=== PATIENT | male | born 1955 | race Caucasian/White ===

== ENCOUNTER 2017-01-11 06:17 | Day surgery (SDC) | payer BC ==
--- NOTE | 2017-01-10 11:56 | NUR ---
IV START PATIENT REPORTS THAT HE HAS A VAGAL RESPONSE EVERY TIME HE GETS A IV STARTED, SO LAST TIME THEY GAVE HIM A VALIUM BEFORE THE IV START.
[~2017-01-11] VITALS: Ht 177.8 cm; Wt 95.9 kg
[~2017-01-11 06:17] MED LIST: AMLO10TA2 PO; ASPI-715 PO; HYDR25TA PO; MULT-806 PO
--- OUTSIDE RECORDS SUMMARY | 2017-01-11 06:21 | XMS REPORT | Referral Summary ---
Author Author [facility] Organization [facility] Address Unknown Phone Unavailable Care Team Providers Care Wool Hat Hydraulicker Name Role Phone Aliza Gerardo Primary Care Physician [phone] Encounter Date(s): 03/04/15 - 03/04/15 [facility] [address] [place] [address] Discharge Disposition: 01-Home or Self Care Attending Physician: Adama eGrardo MD Admitting Physician: Adama Gerardo MD Vital Signs Most recent to 1 oldest [Reference Range]: Temperature Tympanic 36.3 degC [36.6-38.1 degC] *LOW* (03/04/15 1:01 PM) Peripheral Pulse 76 bpm Rate [60-100 bpm] (03/04/15 1:01 PM) Blood Pressure 130/84 mmHg [90-140/60-90 mmHg] (03/04/15 1:01 PM) Problem List Condition Effective Dates Status Health Status Informant Benign essential Active hypertension (disorder)(Confirmed ) Malignant tumor of 2013 Active prostate (disorder)(Confirmed )1 Tobacco Active patient user(Confirmed) Umbilical Active hernia(Confirmed) 1Prostate removed in [place]. Allergies, Adverse Reactions, Alerts No Known Allergies Medications aspirin 81 mg, 0 Refill(s) Start Date: 04/12/14 Status: Ordered hydrochlorothiazide 25 mg oral tablet See Instructions, TAKE ONE TABLET BY MOUTH EVERY DAY, # 90 tabs, 1 Refill(s), eRx: [facility] #[id number], TAKE ONE TABLET BY MOUTH EVERY DAY Start Date: 03/07/15 Status: Ordered multivitamin Daily, 0 Refill(s) Start Date: 04/12/14 Status: Ordered Norvasc 10 mg oral tablet See Instructions, TAKE ONE TABLET BY MOUTH EVERY DAY, # 30 tabs, 2 Refill(s), eRx: [facility] #[id number], TAKE ONE TABLET BY MOUTH EVERY DAY Start Date: 06/14/15 Status: Ordered Norvasc 10 mg oral tablet See Instructions, TAKE ONE TABLET BY MOUTH EVERY DAY, # 30 tabs, 2 Refill(s), eRx: [facility] #[id number], TAKE ONE TABLET BY MOUTH EVERY DAY Start Date: 03/10/15 Status: Ordered predniSONE 10 mg oral tablet See Instructions, 4 tabs dly 3 days, 3 tabs dly 3 days, 2 tabs dly 3 days , 2 tabs dly 3 days, one tab dly 3 days then stop. with food, # 30 tabs, 0 Refill(s) Start Date: 03/17/15 Status: Ordered Results No data available for this section Immunizations Vaccine Date Refusal Reason tetanus/diphth/pertuss (Tdap) adult/adol 11/21/12 Procedures Procedure Date Related Diagnosis Body Site Cystoscopy 2012 Social History Social History Type Response Smoking Status Former smoker; Type: Cigarettes; Tobacco use per day: More than 1 pack; Number of years: 28 Assessment and Plan Extracted from: Title: Office Visit Note Author: Adama Gerardo MD Date: 03/04/15 Assessment/Plan Benign essential hypertension (disorder) Ordered: Basic Metabolic Panel Lipid Panel Malignant tumor of prostate (disorder) Plan: Continue all current medications. Follow up in 6 months. Lets check your cholesterol next week.
--- OUTSIDE RECORDS SUMMARY | 2017-01-11 06:21 | XMS REPORT | Referral Summary ---
Author Author [facility] Organization [facility] Address Unknown Phone Unavailable Care Team Providers Care Carpenter Assistant Installer Name Role Phone Geneva Lara Primary Care Physician [phone] Encounter Date(s): 10/31/16 - 10/31/16 [facility] [address] [place], [place] [address] Discharge Diagnosis: PC (prostate cancer) Discharge Diagnosis: PC (prostate cancer) Discharge Disposition: 01-Home or Self Care Attending Physician: Joshua Marrero MD Admitting Physician: Joshua Marrero MD Vital Signs Most recent to 1 oldest [Reference Range]: Blood Pressure 160/100 mmHg [90-140/60-90 mmHg] *HI* (10/31/16 3:39 PM) Problem List Condition Effective Dates Status Health Status Informant Benign essential Active hypertension (disorder)(Confirmed ) Malignant tumor of 2013 Active prostate (disorder)(Confirmed )1 Obesity(Confirmed) Active patient Tobacco Active patient user(Confirmed) Umbilical Active hernia(Confirmed) 1Prostate removed in [place]. Allergies, Adverse Reactions, Alerts No Known Allergies Medications aspirin 81 mg, 0 Refill(s) Start Date: 04/12/14 Status: Ordered multivitamin Daily, 0 Refill(s) Start Date: 04/12/14 Status: Ordered Results No data available for this section Immunizations Given and Recorded Vaccine Date Status Refusal Reason tetanus/diphth/pertuss (Tdap) adult/adol 11/21/12 Recorded influenza virus vaccine, inactivated 08/05/15 Recorded Procedures Procedure Date Related Diagnosis Body Site Cystoscopy 2012 Social History Social History Type Response Smoking Status Former smoker; Type: Cigarettes; Tobacco use per day: More than 1 pack; Number of years: 28 Assessment and Plan Extracted from: Title: Office Visit Note Author: Joshua Marrero MD Date: 10/31/16 Assessment/Plan 1.PC (prostate cancer) Ordered: Prostate Specific Antigen
--- OUTSIDE RECORDS SUMMARY | 2017-01-11 06:21 | XMS REPORT | Referral Summary ---
Author Author [facility] Organization [facility] Address Unknown Phone Unavailable Care Team Providers Care Night Coordinator Name Role Phone Aliza Gerardo Primary Care Physician [phone] Encounter Date(s): 03/04/15 - 03/04/15 [facility] [address] [place] [address] Discharge Disposition: 01-Home or Self Care Attending Physician: Adama Gerardo MD Admitting Physician: Adama Gerardo MD Vital [...] user(Confirmed) Umbilical Active hernia(Confirmed) 1Prostate removed in [place]. Allergies, Adverse Reactions, Alerts No Known Allergies Medications aspirin 81 mg, 0 Refill(s) Start Date: 04/12/14 Status: Ordered hydrochlorothiazide 25 mg oral tablet See Instructions, TAKE ONE TABLET BY MOUTH EVERY DAY, # 90 tabs, 1 Refill(s), eRx: [facility] #[id number], TAKE ONE TABLET BY MOUTH EVERY DAY Start Date: 03/07/15 Status: Ordered multivitamin Daily, 0 Refill(s) Start Date: 04/12/14 Status: Ordered Norvasc 10 mg oral tablet See Instructions, TAKE ONE TABLET BY MOUTH EVERY DAY, # 30 tabs, 2 Refill(s), eRx: [facility] #[id number], TAKE ONE TABLET BY MOUTH EVERY DAY Start Date: 06/14/15 Status: Ordered Norvasc 10 mg oral tablet See Instructions, TAKE ONE TABLET BY MOUTH EVERY DAY, # 30 tabs, 2 Refill(s), eRx: [facility] #[id number], TAKE ONE TABLET BY MOUTH EVERY DAY [...]
--- OUTSIDE RECORDS SUMMARY | 2017-01-11 06:21 | XMS REPORT | Referral Summary ---
Author Author [facility] Organization [facility] Address Unknown Phone Unavailable Care Team Providers Care Grader Meat Name Role Phone Geneva Lara Primary Care Physician [phone] Encounter VC Date(s): 10/31/15 - 10/31/15 [facility] [address] [place], [place] [address] Discharge Disposition: 01-Home or Self Care Attending Physician: Joshua Marrero MD Admitting Physician: Joshua Marrero MD Vital Signs Most recent to 1 oldest [Reference Range]: Blood Pressure 138/84 mmHg [90-140/60-90 mmHg] (10/31/15 10:14 AM) Problem List Condition Effective Dates Status Health Status Informant Benign essential Active hypertension (disorder)(Confirmed ) Malignant tumor of 2013 Active prostate (disorder)(Confirmed )1 Obesity(Confirmed) Active patient Tobacco Active patient user(Confirmed) Umbilical Active hernia(Confirmed) 1Prostate removed in [place]. Allergies, Adverse Reactions, Alerts No Known Allergies Medications aspirin 81 mg, 0 Refill(s) Start Date: 04/12/14 Status: Ordered hydrochlorothiazide 25 mg oral tablet 25 mg 1 tabs, Oral, Daily, X 90 days, # 90 tabs, 3 Refill(s), Pharmacy: [facility] #[id number], 1 tabs Oral Daily,x90 days Start Date: 09/12/15 Stop Date: 09/06/16 Status: Ordered multivitamin Daily, 0 Refill(s) Start Date: 04/12/14 Status: Ordered Norvasc 10 mg oral tablet 10 mg 1 tabs, Oral, Daily, X 90 days, # 90 tabs, 3 Refill(s), Pharmacy: [facility] #[id number], 1 tabs Oral Daily,x90 days Start Date: 09/12/15 Stop Date: 09/06/16 Status: Ordered Results No data available for this section Immunizations Vaccine Date Refusal Reason tetanus/diphth/pertuss (Tdap) adult/adol 11/21/12 influenza virus vaccine, inactivated 08/05/15 Procedures Procedure Date Related Diagnosis Body Site Cystoscopy 2012 Social History Social History Type Response Smoking Status Former smoker; Type: Cigarettes; Tobacco use per day: More than 1 pack; Number of years: 28 Assessment and Plan No data available for this section
--- OUTSIDE RECORDS SUMMARY | 2017-01-11 06:21 | XMS REPORT | Continuity of Care Document ---
Author Author [facility] Organization [facility] Address Unknown Phone Unavailable Allergies Active Description Code Type Severity Reaction Onset Reported/Identified Relationship to Patient Clinical Status Yes No Known Allergies Drug Allergy N/A N/A 04/17/2013 Yes No Known Drug Allergies Drug Allergy N/A N/A 04/17/2013 Yes No Known Food Allergies Food Allergy N/A N/A 04/17/2013 Yes No Known Allergies NKMA N/A N/A 04/15/2014 Medications Problems Date Dx Coded Attending Type Code Diagnosis Diagnosed By 04/17/2013 Cuba Blake MD Final 185 PROSTATE CA 04/17/2013 Cuba Blake MD Final 401.9 HYPERTENSION NOS Procedures Code Description Performed By Performed On 1742 LAPSCP ROBOTIC ASSIST PX Cuba Blake MD 04/17/2013 60.5 RADICAL PROSTATECTOMY Cuba Blake MD 04/17/2013 Results Encounters ACCT No. Visit Date/Time Discharge Status Pt. Type Provider Facility Loc./Unit Complaint [id number] 04/17/2013 05:05:00 2012 13:16:00 DIS Inpatient Cuba Blake MD [facility] [address]
--- OUTSIDE RECORDS SUMMARY | 2017-01-11 06:21 | XMS REPORT | Referral Summary ---
Author Author [facility] Organization [facility] Address Unknown Phone Unavailable Care Team Providers Care Slitter Scorer Name Role Phone Aliza Gerardo Primary Care Physician [phone] Encounter Date(s): 03/04/15 - 03/04/15 [facility] [address] [place] [address] Discharge Disposition: 01-Home or Self Care Attending [...] user(Confirmed) Umbilical Active hernia(Confirmed) 1Prostate removed in [place]. Allergies, Adverse Reactions, Alerts No Known Allergies Medications aspirin 81 mg, 0 Refill(s) Start Date: 04/12/14 Status: Ordered hydrochlorothiazide 25 mg oral tablet See Instructions, TAKE ONE TABLET BY MOUTH EVERY DAY, # 90 tabs, 1 Refill(s), eRx: [facility] #[id number], TAKE ONE TABLET BY MOUTH EVERY DAY Start Date: 03/07/15 Status: Ordered multivitamin Daily, 0 Refill(s) Start Date: 04/12/14 Status: Ordered Norvasc 10 mg oral tablet See Instructions, TAKE ONE TABLET BY MOUTH EVERY DAY, # 30 tabs, 2 Refill(s), eRx: [facility] #[id number], TAKE ONE TABLET BY MOUTH EVERY DAY Start Date: 06/14/15 Status: Ordered Norvasc 10 mg oral tablet See Instructions, TAKE ONE TABLET BY MOUTH EVERY DAY, # 30 tabs, 2 Refill(s), eRx: [facility] #[id number], TAKE ONE TABLET BY MOUTH EVERY DAY [...]
--- OUTSIDE RECORDS SUMMARY | 2017-01-11 06:21 | XMS REPORT | Referral Summary ---
Author Author [facility] Organization [facility] Address Unknown Phone Unavailable Care Team Providers Care Spot Sprayer Name Role Phone Aliza Gerardo Primary Care Physician [phone] Encounter VC Date(s): 09/12/15 - 09/12/15 [facility] [address] [place] [address] [place] [address] Discharge Disposition: 01-Home or Self Care Attending Physician: Adama Gerardo MD Admitting Physician: Adama Gerardo MD Vital Signs Most recent to 1 oldest [Reference Range]: Temperature Tympanic 36.5 degC [36.6-38.1 degC] *LOW* (09/12/15 3:21 PM) Peripheral Pulse 88 bpm Rate [60-100 bpm] (09/12/15 3:21 PM) Respiratory Rate 16 br/min [14-20 br/min] (09/12/15 3:21 PM) Blood Pressure 134/90 mmHg [90-140/60-90 mmHg] (09/12/15 3:21 PM) Problem List Condition Effective Dates Status Health Status Informant Benign essential Active hypertension (disorder)(Confirmed ) Malignant tumor of 2013 Active prostate (disorder)(Confirmed )1 Obesity(Confirmed) Active patient Tobacco Active patient user(Confirmed) Umbilical Active hernia(Confirmed) 1Prostate removed in [place]. Allergies, Adverse Reactions, Alerts No Known Allergies Medications aspirin 81 mg, 0 Refill(s) Start Date: 04/12/14 Status: Ordered hydrochlorothiazide 25 mg oral tablet 25 mg 1 tabs, Oral, Daily, X 90 days, # 90 tabs, 3 Refill(s), Pharmacy: [facility] #[id number], 1 tabs Oral Daily,x90 days Start Date: 09/12/15 Stop Date: 09/06/16 Status: Ordered multivitamin Daily, 0 Refill(s) Start Date: 04/12/14 Status: Ordered Norvasc 10 mg oral tablet 10 mg 1 tabs, Oral, Daily, X 90 days, # 90 tabs, 3 Refill(s), Pharmacy: [facility] #[id number], 1 tabs Oral Daily,x90 days Start Date: 09/12/15 Stop Date: 09/06/16 Status: Ordered Results Chemistry Most recent to 1 oldest [Reference Range]: Sodium Lvl [135-144 138 mEq/L mEq/L] (09/12/15 3:53 PM) Potassium Lvl 3.8 mEq/L [3.5-5.2 mEq/L] (09/12/15 3:53 PM) Chloride [99-111 102 mEq/L mEq/L] (09/12/15 3:53 PM) CO2 [23-31 mEq/L] 29 mEq/L (09/12/15 3:53 PM) AGAP [3-20] 7 (09/12/15 3:53 PM) BUN [8-26 mg/dL] 15 mg/dL (09/12/15 3:53 PM) Glucose Lvl [70-99 90 mg/dL mg/dL] (09/12/15 3:53 PM) Creatinine Lvl 1.00 mg/dL [0.72-1.25 mg/dL] (09/12/15 3:53 PM) eGFR [>60 mL/min] >60 mL/min 1 (09/12/15 3:53 PM) Calcium Lvl 9.7 mg/dL [8.9-10.5 mg/dL] (09/12/15 3:53 PM) 1Result Comment: Multiply eGFR results by 1.21 for race. Immunizations Vaccine Date Refusal Reason tetanus/diphth/pertuss (Tdap) adult/adol 11/21/12 influenza virus vaccine, inactivated 08/05/15 Procedures Procedure Date Related Diagnosis Body Site Collection of venous blood by venipuncture 09/12/15 Cystoscopy 2012 Social History Social History Type Response Smoking Status Former smoker; Type: Cigarettes; Tobacco use per day: More than 1 pack; Number of years: 28 Assessment and Plan Extracted from: Title: Office Visit Note Author: Adama Gerardo MD Date: 09/12/15 Assessment/Plan Benign essential hypertension (disorder) Ordered: Basic Metabolic Panel Malignant tumor of prostate (disorder) Plan: We discussed the need to find a new primary care doctor. I think your blood pressures under pretty good control. Continue current medications. I would like to check lab tests. Follow-up with your new primary care doctor in 6 months. Orders: amLODIPine, 10 mg 1 tabs, Oral, Daily, X 90 days, # 90 tabs, 3 Refill( s), Pharmacy: [facility] #[id number], 1 tabs Oral Daily,x90 days hydrochlorothiazide, 25 mg 1 tabs, Oral, Daily, X 90 days, # 90 tabs, 3 Refill (s), Pharmacy: [facility] #[id number], 1 tabs Oral Daily,x90 days
--- OUTSIDE RECORDS SUMMARY | 2017-01-11 06:21 | XMS REPORT | Referral Summary ---
Author Author [facility] Organization [facility] Address Unknown Phone Unavailable Care Team Providers Care Rn Pain Management Name Role Phone Geneva Lara Primary Care Physician [phone] Encounter VC Date(s): 03/17/15 - 03/17/15 [facility] [address] [place] [address] Discharge Diagnosis: Contact dermatitis Discharge Disposition: 01-Home or Self Care Attending Physician: Alesia Quinteros APRN Admitting Physician: Alesia Quinteros APRN Vital Signs Most recent to 1 oldest [Reference Range]: Temperature Tympanic 36.3 degC [36.6-38.1 degC] *LOW* (03/17/15 8:02 AM) Peripheral Pulse 76 bpm Rate [60-100 bpm] (03/17/15 8:02 AM) Respiratory Rate 16 br/min [14-20 br/min] (03/17/15 8:02 AM) Blood Pressure 122/80 mmHg [90-140/60-90 mmHg] (03/17/15 8:02 AM) Problem List Condition Effective Dates Status Health Status Informant Benign essential Active hypertension (disorder)(Confirmed ) Malignant tumor of 2013 Active prostate (disorder)(Confirmed )1 Obesity(Confirmed) Active patient Tobacco Active patient user(Confirmed) Umbilical Active hernia(Confirmed) 1Prostate removed in [place]. Allergies, Adverse Reactions, Alerts No Known Allergies Medications aspirin 81 mg, 0 Refill(s) Start Date: 04/12/14 Status: Ordered hydrochlorothiazide 25 mg oral tablet 25 mg 1 tabs, Oral, Daily, X 90 days, # 90 tabs, 3 Refill(s), Pharmacy: [facility] #[id number], 1 tabs Oral Daily,x90 days Start Date: 09/12/15 Stop Date: 12/1/16 Status: Ordered multivitamin Daily, 0 Refill(s) Start Date: 04/12/14 Status: Ordered Norvasc 10 mg oral tablet 10 mg 1 tabs, Oral, Daily, X 90 days, # 90 tabs, 3 Refill(s), Pharmacy: [facility] #[id number], 1 tabs Oral Daily,x90 days Start Date: [...] Extracted from: Title: Office Visit Note Author: Alesia Quinteros APRN Date: 03/17/15 Assessment/Plan 1.Contact dermatitis Discussed nature and pathophysiology of contact dermatitis. Recommend over-the -counter Claritin, Rossy or Zyrtec for extended antihistamine which will help with the itching. May use Benadryl 25-50 mg in addition to if needed. May cause drowsiness. Recommend tcop-[id number] hydrocortisone cream and calamine lotion for package instructions for topical use. Prednisone as discussed. Side effects reviewed. Reviewed how to prevent getting poison [place]. May utilize over-the- counter product Tecnu which will help oil from penetrating the skin. If rash does not improve or other symptoms develop please let us know/. Prednisone as directed. SE reviewed. Ordered: Office Visit Level 3 Est [id number] Orders: predniSONE, See Instructions, 4 tabs dly 3 days, 3 tabs dly 3 days , 2 tabs dly 3 days, 2 tabs dly 3 days, one tab dly 3 days then stop. with food, # 30 tabs, 0 Refill(s)
--- OUTSIDE RECORDS SUMMARY | 2017-01-11 06:21 | XMS REPORT | Continuity of Care Document ---
Author Author [facility], [facility] Address [address] [place] [address] Phone Care Team Providers Care Weather Observer Name Role Phone Adama Gerardo PP Unavailable Payers Payer name Insurance type Covered alliance party ID Authorization(s) Unknown Problems Condition Effective Dates (start - stop) Clinical Status Malignant Neoplasm, Prostate - *Controlled Malignant Neoplasm, Prostate - *Acute Elevated prostate specific antigen (psa) - *Acute Malignant Neoplasm, Prostate - *Acute Hypertension, Benign - *Chronic Malignant Neoplasm, Prostate - *Acute Hypertension, Benign - *Chronic Hypertension, Benign - Chronic Malignant Neoplasm, Prostate - *Controlled Malignant Neoplasm, Prostate - *Fair Control Routine Medical Exam - *Routine Elevated blood pressure reading without diagnosis of hypertension - *Acute Umbilical hernia - *Chronic Hypertension, Benign - *Chronic Hypertension, Benign - Chronic Malignant Neoplasm, Prostate - *Controlled Hypertension, Benign - *Chronic Hypertension, Benign - Chronic Other and unspecified hyperlipidemia - *Acute Hypertension, Benign - *Uncontrolled Hypertension, Benign - Acute Exacerbation Hypertension, Benign - Acute Exacerbation Malignant Neoplasm, Prostate - Persistent Hypotension - *Acute Vasovagal episode - *Acute Elevated PSA - *Acute Malignant Neoplasm, Prostate - *Routine Elevated prostate specific antigen (psa) - *Acute BPH - *Chronic 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 HTN (hypertension), benign - New onset Malignant Neoplasm, Prostate - *Controlled Stress incontinence, male - Improved Malignant Neoplasm, Prostate - *Controlled Family History Family Member Diagnosis Age At Onset Status Mother (Unknown) CAD Yes Father (Unknown) Alcoholism Yes Maternal aunt (Unknown) CAD Yes Maternal aunt (Unknown) Diabetes Yes Maternal grandfather (Unknown) Cancer - unknown Yes Social History Social History Element Description Quantity Unknown Allergies, Adverse Reactions, Alerts Substance Reaction Severity Status Unknown Medications Medication Instructions Dosage Effective Dates (start - stop) Status Bufferin 81 mg tablet 1 TAB DAILY - Active multivitamin tablet take 1 Tablet by Oral route every day 0 - Active hydrochlorothiazide 25 mg tablet take 1 tablet (25MG) by oral route every day 25 MG - Active amlodipine 10 mg tablet take 1 tablet (10MG) by oral route every day 10 MG - Active Immunizations Vaccine Date Status Comments Tdap (Boostrix r) completed Results Test Name Date and Time Measure Units Reference Range Abnormal Flag Comments Unknown Vital Signs Date / Time: Height Weight Pulse Rate Blood Pressure Temperature /12:45:00 70.00 in 203.00 lbs 72 /min 122/76 mm[Hg] Procedures Procedure Date Unknown Encounters Encounter Location Date Patient Visit [facility] Patient Visit [facility] Patient Visit [facility] Patient Visit [facility] Patient Visit [facility] Patient Visit [facility] Patient Visit [facility] Patient [facility] Patient Visit [facility] Patient [facility] Patient [facility] Patient Visit [facility] Patient Visit [facility] Patient Visit [facility] Patient Visit [facility] Patient Visit [facility] Patient Visit [facility] Patient Visit [facility] Patient Visit [facility] Advance Directives Directive Effective Date Unknown
--- OUTSIDE RECORDS SUMMARY | 2017-01-11 06:21 | XMS REPORT | Referral Summary ---
Author Author [facility] Organization [facility] Address Unknown Phone Unavailable Care Team Providers Care Punchboard Filling Machine Operator Name Role Phone Geneva Lara Primary Care Physician [phone] Encounter [facility] [id number] Date(s): 11/21/16 - 11/21/16 [facility] [address] [place] [address] Discharge Diagnosis: Encounter for well adult exam with abnormal findings Discharge Diagnosis: Benign essential hypertension (disorder) Discharge Disposition: 01-Home or Self Care Attending Physician: Alesia Quinteros APRN Vital Signs Most recent to 1 oldest [Reference Range]: Temperature Tympanic 36.9 degC [36.6-38.1 degC] (11/21/16 2:53 PM) Peripheral Pulse 72 bpm Rate [60-100 bpm] (11/21/16 2:53 PM) Respiratory Rate 16 br/min [14-20 br/min] (11/21/16 2:53 PM) Blood Pressure 160/106 mmHg [90-140/60-90 mmHg] *HI* (11/21/16 2:53 PM) Problem List Condition Effective Dates Status Health Status Informant Benign essential Active hypertension (disorder)(Confirmed ) Malignant tumor of 2013 Active prostate (disorder)(Confirmed )1 Obesity(Confirmed) Active patient Tobacco Active patient user(Confirmed) Umbilical Active hernia(Confirmed) 1Prostate removed in [place]. Allergies, Adverse Reactions, Alerts No Known Allergies Medications amLODIPine 10 mg oral tablet 10 mg 1 tabs, Oral, Daily, # 90 tabs, 1 Refill(s), Pharmacy: [facility] # [id number], 1 tabs Oral Daily Start Date: 11/21/16 Status: Ordered aspirin 81 mg, 0 Refill(s) Start Date: 04/12/14 Status: Ordered hydroCHLOROthiazide 25 mg oral tablet 25 mg 1 tabs, Oral, Daily, # 90 tabs, 1 Refill(s), Pharmacy: [facility] # [id number], 1 tabs Oral Daily Start Date: 11/21/16 Status: Ordered multivitamin Daily, 0 Refill(s) Start Date: 04/12/14 Status: Ordered Results No data available for this section Immunizations Given and Recorded Vaccine Date Status Refusal Reason tetanus/diphth/pertuss (Tdap) adult/adol 11/21/12 Recorded influenza virus vaccine, H1N1, inactivat 07/07/16 Recorded influenza virus vaccine, inactivated 08/05/15 Recorded pneumococcal 23-polyvalent vaccine 11/21/16 Given Procedures Procedure Date Related Diagnosis Body Site Cystoscopy 2012 History of radical prostatectomy Social History Social History Type Response Smoking Status Former smoker; Type: Cigarettes; Tobacco use per day: More than 1 pack; Number of years: 28 Assessment and Plan Extracted from: Title: Office Visit Note-well Author: Alesia Quinteros CENTRIFUGAL STATION OPERATOR Date: adult/HTN Assessment/Plan 1.Encounter for well adult exam with abnormal findings Discussed general health maintenance and disease prevention. Encourage a healthy diet and daily exercise. Recommend weight loss5-10 pounds. Discussed fast track colonoscopy. Pt to schedule. Pneumococcal vaccine discussed and given by nursing. Could consider Low dose lung CT for screening. Will discuss at next OV. Ordered: CBC w/ Differential Comprehensive Metabolic Panel Lipid Panel Periodic Comp Preventive Med 40 to 64 years Est 19702 TSH with Reflex Free T4 2.Benign essential hypertension (disorder) Currently uncontrolled. Restart hydrochlorothiazide 25 mg daily. Encourage patient to check his blood pressures outside the office. Goal blood pressures less than 140/90. If it is consistently elevated let us know so we can make further medication adjustments. Encouraged low salt diet, weight loss and exercise to improve the blood pressurecontrol without medications. Discussed long-term risk of uncontrolled blood pressure. Plan follow-up in 6 months or sooner if medical needs arise. Ordered: CBC w/ Differential Comprehensive Metabolic Panel Lipid Panel Periodic Comp Preventive Med 40 to 64 years Est 13369 TSH with Reflex Free T4 Need for 23-polyvalent pneumococcal polysaccharide vaccine Ordered: Periodic Comp Preventive Med 40 to 64 years Est 58948
--- OUTSIDE RECORDS SUMMARY | 2017-01-11 06:21 | XMS REPORT | Referral Summary ---
Author Organization Unknown Address Unknown Phone Unavailable Care Team Providers Care Drop Wire Aliner Name Role Phone Aliza Gerardo Primary Care Physician [phone] Encounter [facility] Date(s): 10/27/14 - 10/27/14 [facility] [address] [place], [place] [address] Discharge Diagnosis: ELEVATED PROSTATE SPECIFIC ANTIGEN [PSA] Discharge Disposition: Home or Self Care Attending Physician: Joshua Marrero MD Admitting Physician: Joshua Marrero MD Referring Physician: Cuba Blake MD Vital Signs Most recent to 1 oldest [Reference Range]: Blood Pressure 128/64 mmHg [90-140/60-90 mmHg] (10/27/14 3:40 PM) Problem List Condition Effective Dates Status Health Status Informant Benign essential Active hypertension (disorder)(Confirmed ) Malignant tumor of Active prostate (disorder)(Confirmed ) Tobacco Active patient user(Confirmed) Umbilical Active hernia(Confirmed) Allergies, Adverse Reactions, Alerts No Known Allergies Medications aspirin 81 mg, 0 Refill(s) Start Date: 04/12/14 Status: Ordered hydrochlorothiazide 25 mg oral tablet See Instructions, TAKE ONE TABLET BY MOUTH EVERY DAY, # 90 tabs, eRx: [facility] #[id number], TAKE ONE TABLET BY MOUTH EVERY DAY Special Instructions: TAKE ONE TABLET BY MOUTH EVERY DAY Start Date: 08/30/14 Status: Ordered multivitamin Daily, 0 Refill(s) Start Date: 04/12/14 Status: Ordered Norvasc 10 mg oral tablet See Instructions, TAKE ONE TABLET BY MOUTH EVERY DAY, # 30 tabs, 2 Refill(s), eRx: [facility] #[id number], TAKE ONE TABLET BY MOUTH EVERY DAY Special Instructions: TAKE ONE TABLET BY MOUTH EVERY DAY Start Date: 10/04/14 Status: Ordered Results Chemistry Most recent to 1 oldest [Reference Range]: PSA (wihout Reflex <0.1 ng/mL 1 Free) [0.0-3.5 (10/27/14 4:05 PM) ng/mL] 1Result Comment: AUA PSA Best Practice Guidelines: Age-Adjusted PSA Values by Ethnic Group Age Range Asians - Caucasians Americans 40-49 0-2.0 0-2.0 0-2.5 50-59 0-3.0 0-4.0 0-3.5 60-69 0-4.0 0-4.5 0-4.5 70-79 0-5.0 0-5.5 0-6.5 Immunizations Vaccine Date Refusal Reason tetanus/diphth/pertuss (Tdap) adult/adol 11/21/12 Procedures Procedure Date Related Diagnosis Body Site Cystoscopy 2012 Social History Social History Type Response Smoking Status Former smoker; Type: Cigarettes; Tobacco use per day: More than 1 pack; Number of years: 28 Assessment and Plan Extracted from: Title: Ambulatory Patient Education Author: Joshua Marrero MD Date: Family Medicine Acid Phosphatase Acid phosphatase is an enzyme found in many tissues but is highest in the prostate. It is elevated in cancer of the prostate but it is not specific for carcinoma of the prostate. This means that it cannot be used as a screening test for cancer of the prostate but may be helpful in following this illness. It is elevated when cancer of the prostate has spread but may also be elevated with other tumors that have spread to bone. This test may be elevated with diseases of the prostate or following procedures that manipulate the prostate. This can include bladder catheterization, examination of the prostate by physical exam or recent TUR (transurethral resection of the prostate), prostatitis (inflammation of the prostate) or with urinary retention. It may also be elevated with BPH (benign prostatic hyperplasia). This is the enlargement of the prostate that normally occurs with aging and benign means that this is not cancerous. This test is most often normal with cancer of the prostate that has not spread beyond the prostate and is in an early stage of the disease. PREPARATION FOR TEST No preparation or fasting is required. A blood sample is taken by a needle from a vein. NORMAL FINDINGS Adults/elderly: 0.13-0.63 units/L (Van, Erica, Frankie, 37 C) or 2.2-10.5 units/L (SI units) Child: 8.6-12.6 units / (mL 30 C) [place]: 10.4-16.4 units / mL (30C) Ranges for normal findings may vary among different laboratories and hospitals. You should always check with your doctor after having lab work or other tests done to discuss the meaning of your test results and whether your values are considered within normal limits. MEANING OF TEST Your caregiver will go over the test results with you and discuss the importance and meaning of your results, as well as treatment options and the need for additional tests if necessary. OBTAINING THE TEST RESULTS It is your responsibility to obtain your test results. Ask the lab or department performing the test when and how you will get your results. Document Released: 10/15/2005 Document Revised: 12/15/2012 Document Reviewed: [facility] Patient Information 2014 [employer]. No follow up information was provided. Extracted from: Title: Office Visit Note Author: Joshua Marrero MD Date: 10/27/14 Assessment/Plan ELEVATED PROSTATE SPECIFIC ANTIGEN [PSA] Personal history of prostate cancer Orders: Prostate Specific Antigen Prostate Specific Antigen
--- OUTSIDE RECORDS SUMMARY | 2017-01-11 06:21 | XMS REPORT | Referral Summary ---
Author Author [facility] Organization [facility] Address Unknown Phone Unavailable Care Team Providers Care Java Consultant Name Role Phone Aliza Gerardo Primary Care Physician [phone] Encounter Date(s): 03/04/15 - 03/04/15 [facility] [address] [place] [address] Discharge Disposition: 01-Home or Self Care [...] user(Confirmed) Umbilical Active hernia(Confirmed) 1Prostate removed in [place]. Allergies, Adverse Reactions, Alerts No Known Allergies Medications aspirin 81 mg, 0 Refill(s) Start Date: 04/12/14 Status: Ordered hydrochlorothiazide 25 mg oral tablet See Instructions, TAKE ONE TABLET BY MOUTH EVERY DAY, # 90 tabs, 1 Refill(s), eRx: [facility] #[id number], TAKE ONE TABLET BY MOUTH EVERY DAY Start Date: 03/07/15 Status: Ordered multivitamin Daily, 0 Refill(s) Start Date: 04/12/14 Status: Ordered Norvasc 10 mg oral tablet See Instructions, TAKE ONE TABLET BY MOUTH EVERY DAY, # 30 tabs, 2 Refill(s), eRx: [facility] #[id number], TAKE ONE TABLET BY MOUTH EVERY DAY Start Date: 06/14/15 Status: Ordered Norvasc 10 mg oral tablet See Instructions, TAKE ONE TABLET BY MOUTH EVERY DAY, # 30 tabs, 2 Refill(s), eRx: [facility] #[id number], TAKE ONE TABLET BY MOUTH EVERY DAY [...]
--- OUTSIDE RECORDS SUMMARY | 2017-01-11 06:21 | XMS REPORT ---
Author Author [place], [facility] - Organization Unknown Address Unknown Phone Unavailable Allergies, Adverse Reactions, Alerts * No Latex Allergy. * No IV Contrast Allergy. * No Known Drug Allergies. * No Known Food Allergies. * No Known Allergies. Problems * Abdominal Pain* Status:Active. * Radical Prostatectomy* Status:Active. Procedures No relevant procedures performed. Medication It is the responsibility of the patient or patient sales representative aircraft to confirm the list of medications with either the patient's personal care provider or the patient's follow-up care provider to ensure the patient has an appropriate list of medications to take at home. Discharge medications* amLODIPine 10 mg Tablet, Ordered By: KENYETTA BRAVO Directions: 1 tablet oral daily * hydrochlorothiazide 25 mg Tablet, Ordered By: KENYETTA BRAVO Directions: 1 tablet oral daily * aspirin (Aspir-Low) 81 mg tablet,delayed release (DR/EC), Ordered By: KENYETTA BRAVO Directions: 1 tablet oral daily * MULTIVITAMIN 1 TAB BY MOUTH DAILY, LAST DOSE 04/16/13 1900 * HYDROcodone-acetaminophen 7.5 mg-500 mg Tablet, Ordered By: KENYETTA BRAVO Directions: 1 tablet oral every four hours PRN MODERATE TO SEVERE PAIN * docusate sodium (Colace) 100 mg Capsule, Ordered By: KENYETTA BRAVO Directions: 1 capsule oral twice a day * tolterodine (Detrol LA) 4 mg capsule,extended release 24hr, Ordered By: KENYETTA BRAVO Directions: 1 capsule oral twice a day PRN bladder spasms * ciprofloxacin (Cipro) 500 mg Tablet, Ordered By: KENYETTA BRAVO Directions: 1 tablet oral twice a day Stopped medications* None Results LAB--BEDSIDE TESTING from 04/17/2013 5:44 AMGlucose NPT 91 mg/dL (70-100 mg/dL) LAB--BLOOD BANK from 04/17/2013 5:45 AMABO and Rh O POS Antibody Screen (Indirect Priyanka) NEG LAB--BLOOD BANK from 04/17/2013 7:25 AMRed Blood Cells Leukoreduced ( Preliminary Result)[facility] -1 [id number] selected 04/17/13 07:25 [facility] -3 [id number] selected 04/17/13 07:25 [place] LAB--CHEMISTRY from 04/17/2013 5:45 AMAnion Gap 9 (3-20 ) Albumin 4.3 g/dL (3.5-4.8 g/dL) Alkaline Phosphatase 91 U/L (26-104 U/L) ALT (SGPT) 31 U/L (17-63 U/L) AST (SGOT) 29 U/L (15-41 U/L) Bilirubin Total 1.0 mg/dL (0.2-1.2 mg/dL) BUN 9 mg/dL (4-20 mg/dL) Calcium 9.5 mg/dL (8.6-10.0 mg/dL) Chloride 102 mEq/L (99-109 mEq/L) CO2 26 mEq/L (22-32 mEq/L) Creatinine 0.93 mg/dL (0.64-1.27 mg/dL) eGFR >60 (>60- ) Globulin 3.7 g/dL (1.9-4.3 g/dL) Glucose 94 mg/dL (70-100 mg/dL) Potassium 3.4 mEq/L L (3.6-5.1 mEq/L) Sodium 137 mEq/L (136-144 mEq/L) Protein 8.0 g/dL H (6.1-7.9 g/dL) PSA 2.6 ng/mL (0.0-3.5 ng/mL) LAB--CHEMISTRY from 04/18/2013 4:04 AMAnion Gap 5 (3-20 ) BUN 7 mg/dL (4-20 mg/dL) Calcium 8.1 mg/dL L (8.6-10.0 mg/dL) Chloride 103 mEq/L (99-109 mEq/L) CO2 28 mEq/L (22-32 mEq/L) Creatinine 0.97 mg/dL (0.64-1.27 mg/dL) eGFR >60 (>60- ) Glucose 118 mg/dL H (70-100 mg/dL) Potassium 4.1 mEq/L (3.6-5.1 mEq/L) Sodium 136 mEq/L (136-144 mEq/L) LAB--HEMATOLOGY from 04/17/2013 5:45 AMAbsolute Basophils 0.03 THOUS (0.00-0.20 THOUS) Absolute Eosinophils 0.41 THOUS (0.00-0.50 THOUS) Absolute Lymphocytes 2.19 THOUS (0.80-3.30 THOUS) Absolute Monocytes 1.20 THOUS H (0.30-1.00 THOUS) Absolute Neutrophils 7.00 THOUS (1.90-7.00 THOUS) HCT 44.6 % (42.0-52.0 %) HGB 15.0 g/dl (14.0-18.0 g/dl) MCH 27.7 pg (27.0-32.0 pg) MCHC 33.6 g/dL (32.0-36.0 g/dL) MCV 82.4 fL (82.0-99.0 fL) MPV 9.7 fL (9.4-12.3 fL) Platelet Count 416 K/uL H (150-400 K/uL) RBC 5.41 M/uL (4.60-6.20 M/uL) RDW 12.8 % (11.5-14.5 %) WBC 10.9 K/uL H (4.8-10.8 K/uL) Basophils 0 % (0-2 %) Eosinophils 4 % (0-4 %) Immature Granulocytes 0.3 % (0.0-1.0 %) Lymphocytes 20 % (20-46 %) Monocytes 11 % (4-11 %) Nucleated RBC Automated 0.0 /100 WBC (0 /100 WBC) Neutrophils 64 % (51-75 %) LAB--HEMATOLOGY from 04/18/2013 4:04 AMHCT 34.8 % L (42.0-52.0 %) HGB 11.6 g/dl L (14.0-18.0 g/dl) MCH 28.0 pg (27.0-32.0 pg) MCHC 33.3 g/dL (32.0-36.0 g/dL) MCV 84.1 fL (82.0-99.0 fL) MPV 9.6 fL (9.4-12.3 fL) Platelet Count 322 K/uL (150-400 K/uL) RBC 4.14 M/uL L (4.60-6.20 M/uL) RDW 13.0 % (11.5-14.5 %) WBC 12.4 K/uL H (4.8-10.8 K/uL)
--- OUTSIDE RECORDS SUMMARY | 2017-01-11 06:22 | XMS REPORT | Referral Summary ---
Author Author [facility] Organization [facility] Address Unknown Phone Unavailable Care Team Providers Care Curator Medical Museum Name Role Phone Aliza Gerardo Primary Care Physician [phone] Encounter Date(s): 03/04/15 - 03/04/15 [facility] [address] [place] [address] Discharge Disposition: 01-Home or Self Care [...] user(Confirmed) Umbilical Active hernia(Confirmed) 1Prostate removed in [place]. Allergies, Adverse Reactions, Alerts No Known Allergies Medications aspirin 81 mg, 0 Refill(s) Start Date: 04/12/14 Status: Ordered hydrochlorothiazide 25 mg oral tablet See Instructions, TAKE ONE TABLET BY MOUTH EVERY DAY, # 90 tabs, 1 Refill(s), eRx: [facility] #[id number], TAKE ONE TABLET BY MOUTH EVERY DAY Start Date: 03/07/15 Status: Ordered multivitamin Daily, 0 Refill(s) Start Date: 04/12/14 Status: Ordered Norvasc 10 mg oral tablet See Instructions, TAKE ONE TABLET BY MOUTH EVERY DAY, # 30 tabs, 2 Refill(s), eRx: [facility] #[id number], TAKE ONE TABLET BY MOUTH EVERY DAY Start Date: 06/14/15 Status: Ordered Norvasc 10 mg oral tablet See Instructions, TAKE ONE TABLET BY MOUTH EVERY DAY, # 30 tabs, 2 Refill(s), eRx: [facility] #[id number], TAKE ONE TABLET BY MOUTH EVERY DAY [...]
--- OUTSIDE RECORDS SUMMARY | 2017-01-11 06:22 | XMS REPORT | Referral Summary ---
Author Author [facility] Organization [facility] Address Unknown Phone Unavailable Care Team Providers Care Truss Maker Name Role Phone Aliza Gerardo Primary Care Physician [phone] Encounter VC Date(s): 03/04/15 - 03/04/15 [facility] [address] [place] [address] [place] [address] Discharge Disposition: 01-Home or Self Care [...] user(Confirmed) Umbilical Active hernia(Confirmed) 1Prostate removed in [place]. Allergies, Adverse Reactions, Alerts No Known Allergies Medications aspirin 81 mg, 0 Refill(s) Start Date: 04/12/14 Status: Ordered hydrochlorothiazide 25 mg oral tablet 25 mg 1 tabs, Oral, Daily, X 90 days, # 90 tabs, 3 Refill(s), Pharmacy: [facility] #[id number], 1 tabs Oral Daily,x90 days Start Date: 09/12/15 Stop Date: 09/06/16 Status: Ordered multivitamin Daily, 0 Refill(s) Start Date: 04/12/14 Status: Ordered Norvasc 10 mg oral tablet 10 mg 1 tabs, Oral, Daily, X 90 days, # 90 tabs, 3 Refill(s), Pharmacy: [facility] #[id number], 1 tabs Oral Daily,x90 days Start Date: [...]
--- OUTSIDE RECORDS SUMMARY | 2017-01-11 06:22 | XMS REPORT | Referral Summary ---
Author Author [facility] Organization [facility] Address Unknown Phone Unavailable Care Team Providers Care Financial Business Analyst Name Role Phone Aliza Gerardo Primary Care Physician [phone] Encounter Date(s): 03/04/15 - 03/04/15 [facility] [address] [place] [id number] Discharge Disposition: 01-Home or Self Care [...] user(Confirmed) Umbilical Active hernia(Confirmed) 1Prostate removed in [place]. Allergies, Adverse Reactions, Alerts No Known Allergies Medications aspirin 81 mg, 0 Refill(s) Start Date: 04/12/14 Status: Ordered hydrochlorothiazide 25 mg oral tablet See Instructions, TAKE ONE TABLET BY MOUTH EVERY DAY, # 90 tabs, 1 Refill(s), eRx: [facility] #[id number], TAKE ONE TABLET BY MOUTH EVERY DAY Start Date: 03/07/15 Status: Ordered multivitamin Daily, 0 Refill(s) Start Date: 04/12/14 Status: Ordered Norvasc 10 mg oral tablet See Instructions, TAKE ONE TABLET BY MOUTH EVERY DAY, # 30 tabs, 2 Refill(s), eRx: [facility] #[id number], TAKE ONE TABLET BY MOUTH EVERY DAY Start Date: 06/14/15 Status: Ordered Norvasc 10 mg oral tablet See Instructions, TAKE ONE TABLET BY MOUTH EVERY DAY, # 30 tabs, 2 Refill(s), eRx: [facility] #[id number], TAKE ONE TABLET BY MOUTH EVERY DAY [...]
[2017-01-11 06:34] VITALS: BP 131/86; PULSE 69; RESP 17; TEMP 98.5; O2SAT 93; Ht 177.8 cm; Wt 95.9 kg
[2017-01-11] MEDS ORDERED: LIDOCAINE 1% (10mg/ml) 2ml SDV INJ ONE (07:00)
[2017-01-11] MEDS ORDERED: LR 1,000 ML IV SCH (07:00)
--- NOTE | 2017-01-11 07:31 | ANESPREOP ---
Anesthesia Record Date and Time DATE: 01/11/17 TIME: 07:28 Pre-Op Diagnosis screening Proposed Surgical Procedure COLONOSCOPY NPO since: mn Allergies: Coded Allergies: No Known Allergies (Unverified , 01/11/17) Ht/Wt/BMI Height: 5 ' 10.00 " Weight: 95.900 kg BMI: 30.3 kg/m2 Vital Signs Date Time Temp Pulse Resp B/P Pulse Ox O2 Delivery O2 Flow Rate FiO2 01/11/17 06:34 98.5 69 17 131/86 93 Room Air Medications Inpatient Medications Current Medications Medications (Trade) Dose Ordered Sig/Bobby Start Time Stop Time Status Last Admin Dose Admin Lactated Ringer's (Lactated Ringers) 1,000 ml @ 30 mls/hr Q24H 01/11/17 07:00 01/11/17 07:04 30 MLS/HR Amlodipine Besylate (Amlodipine Besylate) 10 Mg Tablet, 1 TAB PO DAILY, ( Reported) Last Taken: on 01/10/17 0800 Aspirin EC (Aspirin Ec) 81 Mg Tablet.dr, 81 MG PO DAILY, (Reported) Last Taken: on 01/05/17 0800 Hydrochlorothiazide (Hydrochlorothiazide) 25 Mg Tablet, 1 TAB PO DAILY, (Reported) Last Taken: on 01/10/17 0800 Multivitamins (Multivitamin) 1 Tab Tablet, 1 TAB PO DAILY, (Reported) Last Taken: on 01/05/17 0800 Currently on Beta William: No Medical/Surgical History Anesthesia PMH: Reports: *Hypertension, Cancer ( PROSTATE CANCER), Denies: * Angina, *Diabetes, *Dyspnea, *CA, Anesthesia Reactions (NO AIRWAY ISSUES), Arthritis, Asthma, Blood Transfusion Reac, CHF, COPD, CVA/Stroke/TIA, Clotting Problems, Deep Vein Thrombosis, Glaucoma, Hepatitis, Hiatal Hernia, Malignant Hyperthermia, Pneumonia (HX OF BRONCHITIS-1999), Reflux, Renal Disease, Seizures , Sleep Apnea, Thyroid Disease, Tuberculosis Smoking Status: Former smoker (quit in 1999) Substance Use Type: does not use Alcohol Intake: none Past Surgical History Orthopedic Surgeries: No Abdominal Surgeries: No Genitourinary Surgeries: Yes - PROSTECTOMY 2012,CYSTOSCOPY PER H&P Cardiac Surgeries: No Endocrine Surgeries: No Reproductive Surgeries: No Neurological Surgeries: No Ear Surgeries: No Nose Surgeries: No Throat Surgeries: No Other Surgeries: No Anesthesia Adverse Reactions: FOUND none Family Hx of Anesthesia Advers: none Hx of Motion Sickness: No Pertinent Findings EKG Rhythm: Sinus Rhythm Physical Exam Respiratory: Bilat breath sounds equal, Lungs clear Cardiovascular: FOUND Regular rate, rhythm, FOUND No murmur Airway Assessment Mallampati Score: I TMD: 3 Fingerbreadths Neck Extension: Fair Teeth: Poor Dentation (only 1 tooth left ) Overall Assessment: No Airway Concerns ASA: 2 Plan Anesthesia Plan: TIVA Discussion Discussed risks/options/alternatives of anesthesia and questions answered. Patient consents. Nursing pain assessment noted. Attestation Statement Prior to the delivery of any anesthetic medication, I examined the patient, developed the plan, obtained the patient's consent and discussed the risk and benefits of the procedure with the patient/guardian. ALLYSSA MELENDREZ CRNA Jan 11, 2017 07:31
[2017-01-11] MEDS ORDERED: LIDOCAINE 2% (20mg/ml) 5ml PF SDV ONE (09:07)
[2017-01-11] MEDS ORDERED: PROPOFOL 500mg 50 ML IV ONE (09:07)
[2017-01-11] MEDS ORDERED: FENTANYL 100mcg/2ml INJECTION ONE (09:08)
[2017-01-11 09:32] VITALS: BP 107/71; PULSE 91; RESP 12; TEMP 97.8; O2SAT 93
[2017-01-11 09:40] VITALS: BP 111/74; PULSE 93; RESP 15; O2SAT 91
--- NOTE | 2017-01-11 09:46 | ANESPO ---
Post-Op Note Date 01/11/17 Time: 09:43 Status Pt Participated in Evaluation: Pt participated in person Vital Signs Date Time Temp Pulse Resp B/P Pulse Ox O2 Delivery O2 Flow Rate FiO2 01/11/17 09:32 97.8 91 12 107/71 93 Mask 6.00 Respiratory Function: Airway patent Cardiovascular Function: Regular pulse Mental Status: Alert/oriented Pain Level Intensity: 0 Complications during Recovery pt had significant amount of reflux during procedure causing coughing. suctioned immediately. surgeon, pt and family made aware. Spo2 baseline in recovery. pt and family told pt may have aspirated and if he has any issues at home to come to ER. Follow-Up Instructions Instructions Per Surgeon ALLYSSA MELENDREZ CRNA Jan 11, 2017 09:46
[2017-01-11 09:50] VITALS: BP 103/56; PULSE 84; RESP 16; O2SAT 93
[2017-01-11 10:00] VITALS: BP 130/56; PULSE 84; RESP 15; O2SAT 93
--- NOTE | 2017-01-11 14:18 | OPNOTEF ---
DATE OF SERVICE 01/11/2017 SURGEON Jakub Ly MD PREOPERATIVE DIAGNOSIS Colorectal cancer surveillance. POSTOPERATIVE DIAGNOSIS Colorectal cancer surveillance, sigmoid diverticulosis, colonic polyp at 60 cm and hepatic flexure. PROCEDURES Colonoscopy with polypectomies via cold biopsy technique. ANESTHESIA TIVA BRIEF HISTORY/INDICATIONS Mr. Mcclain is a 61-year-old gentleman who presents today to [facility] to undergo a colonoscopy to serve as a portion of his overall colorectal cancer surveillance. For completeness please refer to notes included in the patient's chart. FINDINGS Upon colonoscopy the patient was found a moderate number of diverticula within the sigmoid colon region. There was no evidence for angiodysplastic lesions or terrance malignancies. He was found have two polyps that were both fairly diminutive in nature on the order of 5 mm in diameter. These were located at 60 cm from the anal verge and at the hepatic flexure. Both polyps were removed in their entirety via cold biopsy technique. NARRATIVE OF PROCEDURE After informed consent was obtained the patient was brought to the endoscopy suite and placed on the table in left lateral decubitus position. Patient subsequently underwent total intravenous anesthesia by the nurse certified nurses aide at my request. Formal timeout was then completed. Next, a digital rectal exam was performed. Normal sphincter tone. No rectal masses were appreciated. An Olympus colonoscope was inserted into the anus and advanced through the lumen of the colon under direct visualization at all times until the cecum was ascertained. Triangulation of the tenia coli, ileocecal valve and appendiceal lumen were all visualized. The scope was slowly withdrawn, maintaining visualization of the lumen at all times. As the scope was being withdrawn two polyps were identified at the hepatic flexure and at 60 cm from the anal verge. Both of these polyps were fairly diminutive in nature and were removed in their entirety via cold biopsy technique and submitted for pathologic evaluation. The scope was continued to be slowly withdrawn. The patient was found to have a moderate number of diverticula within the sigmoid colon region. No evidence of angiodysplastic lesions or terrance malignancies was noted. Once the colonoscope was withdrawn back to the rectal vault, a J-maneuver was performed. No worrisome perianal pathology was noted. Scope was allowed to straighten and was withdrawn through the anal verge. Patient tolerated the procedure without difficulty and was sent back to the preop area in stable condition. Will await biopsy results from today's colonoscopy and proceed accordingly with further recommendations thereafter. MTDD
== END 2017-01-11 10:05 | disposition home or self-care (01) ==
LOC: NSC 06:17
PROVIDERS: ATTEND Surgery
DX: Z12.11 Encounter for screening for malignant neoplasm of colon (principal); D12.3 Benign neoplasm of transverse colon; K57.30 Diverticulosis of large intestine without perforation or abscess without bleeding; I10 Essential (primary) hypertension; Z79.82 Long term (current) use of aspirin; Z79.899 Other long term (current) drug therapy; Z87.891 Personal history of nicotine dependence; Z85.46 Personal history of malignant neoplasm of prostate
CPT/HCPCS: 45380; J2704; J3010; J7120